=== PATIENT | male | born 1985 | race Caucasian/White ===

== ENCOUNTER 2024-11-28 10:28 | Outpatient (AMB) | payer OTHER, SELFPAY ==
--- NOTE | 2024-11-28 10:34 | A.OFFPC_ITS ---
Vital Signs 11/28/24 10:41 Height 6 ft 5 in Weight 200 lb BMI 23.7 BP 110/72 Blood Pressure Location Lt brachial Position Sitting Respiration 14 Pulse 74 Pulse Source Pulse Oximeter Pulse Oximetry (%) 99 Oxygen Delivery Method Room Air Intake Visit Reasons: Est care /requesting referral for surgery Intake Note: New patient visit Back Tender Required: No Allergies No Known Allergies Allergy (Verified 11/28/24 10:35) Medication List - Last Reconciled 11/28/24 by Minna Cortes PA-C No Known Home Meds Tobacco use date assessed: 11/28/24 Dental Screening Dental Screen Date: 11/28/24 HPI Est care /requesting referral for surgery HPI Details History of Present Illness The patient is a 39-year-old male presenting to [facility] and with a request for referrals for his ongoing management of Stage 2A melanoma. The patient reports that he was diagnosed with melanoma on October 03, which was classified as Stage 2A following his initial visit at a dermatology clinic ([facility]) on September 12. The lesion was initially measured at 4 mm x 6 mm on his face by the data warehousing engineer at [facility]. The patient recalls having an insurance-provided referral from his previous primary care provider at [facility]. He states that his pcp left onsted and he has since been without a pcp. The patient indicates that he has a scheduled surgical procedure at [facility] on December 11 for the excision of the melanoma. He has seen Dr. Souleymane Colon, the head surgeon at [facility], and has been in correspondence with a plastic surgeon, Dr. Fabrizio Prince, who is expected to be part of the surgical team. The patient has had a PET scan and MRI three weeks ago, which showed that the melanoma had not metastasized. He also reports having undergone a full-body examination previously at [facility] and intends to continue receiving care there alongside [facility]. Moreover, the patient mentions a plan to implement routine screenings including basic labs for liver and kidney function, cholesterol, blood glucose levels, and other routine tests, although these have not yet been undertaken. The patient denies any symptoms suggestive of systemic effects of melanoma, including fatigue or changes in appetite, and remains active in his occupation in [employer], as well as in personal fitness activities. Health Maintenance - Scheduled surgery for melanoma excisio n at [facility] on December 11 - Reported receiving and following a pre ventative full-body skin examination on September 12 - Plans to continue with routine blood w ork monitoring liver and kidney function, blood glucose, cholesterol, and thyroid function - Continuing regular cardiovascular and strength exercises - Consumes a primarily plant-based diet during a 21-day [place] fast, consuming fruits, vegetables, and lentils - Protective measures involving sun prot ection with full-brimmed hats and sunscreen Social History - Employment: certified pest control technician, 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 Appears stated age. Cardiac: RRR, no murmurs Lungs: clear, equal breath sounds Abdomen: soft, nontender, no CVA tenderness Extremities: no edema Neuro: alert, oriented x3, mood appropriate Plan - I will provide referrals for ongoing d ermatologic and oncological care, including [facility] and [facility], as well as a plastic surgery consult with Dr. Fabrizio Prince - Schedule and complete repeat blood wor k including basic labs for comprehensive metabolic profile CMP), blood glucose, cholesterol panel, and thyroid function given the plan for surgery - I recommend continued adherence to the scheduled surgical procedure for melanoma excision set for December 11 - Continue protective measures for skin care, specifically UV protection - Follow-up on the insurance coverage fo r referrals to ensure all necessary consultations and procedures are covered - Encourage continued physical activity and a balanced diet with the transition back to a varied diet post-fast - Monitor for any changes in symptoms or new skin lesions and maintain a regular follow-up as scheduled for post-operative evaluation - Discuss concerns regarding return to w ork and necessary recovery period following surgery PFSH Family History (Updated 11/28/24 @ 10:41 by Nia Bear [facility]) Maternal Aunt Diabetes Maternal Aunt Colon cancer Maternal Grandfather Alzheimer dementia Other Substance abuse Social History (Updated 11/28/24 @ 10:39 by Nia Bear [facility]) Housing: House 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 1. Little interest or pleasure in doing things: not at all 2. Feeling down, depressed, or hopeless: not at all 3. Trouble falling or staying asleep, or sleeping too much: not at all 4. Feeling tired or having little energy: not at all 5. Poor appetite or overeating: not at all 6. Feeling bad about yourself - or that you are a failure or have let yourself or your family down: not at all 7. Trouble concentrating on things, such as reading the newspaper or watching television: not at all 8. Moving or speaking so slowly that other people could have noticed. Or the opposite - being so fidgety or restless that you have been moving around a lot more than usual: not at all 9. Thoughts that you would be better off or of hurting yourself in some way: not at all Total score: 0 Depression Screening Interpretation: Negative Depression Screening Done: Yes 59070 - PHQ-9 Billing: Yes Source: Developed by Drs. Froy Mota, Isis Fuentes, Juarez Casillas and colleagues, with an educational ladonna from [employer]. Thrive Questionnaire I am a: Patient What is your living situation today?: I have a steady place to live Within the past 12 months, did the food you bought not last and you didn't have the money to get more?: I choose not to answer this question Within the past 12 months, did you worry whether your food would run out before you got money to buy more?: I choose not to answer this question Do you have trouble paying for medicines?: No Do you have trouble getting transportation to medical appointments?: No Do you have trouble paying your heating and electricity bill?: I choose not to answer this question Do you have trouble taking care of your child, family member or friend?: I choose not to answer this question Do you have trouble with day-to-day activities such as bathing, preparing meals, shopping, managing finances, etc.?: No Are you currently unemployed and looking for a job?: No Are you interested in more education?: No Please select the resources that you would like help with: None Currently or been in a relationship where the following occur: I choose not to answer THRIVE Score: 0 AUDIT C Alcohol Use Questionnaire (AUDIT-C) 1. How often do you have a drink containing alcohol?: Never Total Score: 0 AMANDA-7 AMB Questionnaire AMANDA-7 Feeling nervous, anxious, or on edge: 0 = Not at all Not being able to stop or control worryin = Not at all Worrying too much about different things: 0 = Not at all Trouble relaxin = Not at all Being so restless that it is hard to sit still: 0 = Not at all Becoming easily annoyed or irritable: 0 = Not at all Feeling afraid as if something awful might happen: 0 = Not at all Total AMANDA-7 score (0-4 normal; 5-9 mild; 10-14 moderate; 15-21 severe): 0 Source: Developed by Drs. Froy Mota, Isis Fuentes, Juarez Casillas and colleagues, with an educational ladonna from [employer]. AMANDA-7 Assessment Billing AMANDA-7 Assessment Tool: AMANDA-7 Assessment 91428 Physical exam (Primary Care) Vital Signs: Last Vital Signs Pulse 74 11/28/24 10:41 Resp 14 11/28/24 10:41 BP 110/72 11/28/24 10:41 Pulse Ox 99 11/28/24 10:41 Oxygen Delivery Method Room Air 11/28/24 10:41 BMI result Body Mass Index 23.7 Tobacco/Smoking Status: Tobacco use Status Tobacco use date assessed 11/28/24 11/28/24 10:43 Patient Tobacco Use Status Never used Tobacco 11/28/24 10:43 e-Cigarette/Vaping Use Never Used 11/28/24 10:43 PHQ-9: PHQ-9 Score PHQ-9: Total score 0 11/28/24 11:03 Depression Screening Interpretation: Negative Currently or been in a relationship where the following occur: I choose not to answer Coding Level of Care Code New Pt Level 3 (13108) Complex EM visit Add On G2211 Diagnoses Malignant melanoma, stage IIA C43.9 Additional Codes AMANDA-7 Assessment Billing - AMANDA-7 Assessment Tool: AMANDA-7 Assessment 61333 ([id number]) PHQ-9 - 63036 - PHQ-9 Billing: Yes ([id number]) Assessment & Plan Assessment & Plan (1) Malignant melanoma, stage IIA: Code(s): C43.9 - Malignant melanoma of skin, unspecified Category: Medical Plan: . Orders: Orders Complete Blood Count Auto Diff Today C43.9 - Malignant melanoma of skin, unspecified, Z01.89 - Encounter for other specified special examinations Comprehensive [place]. Panel Fast Today C43.9 - Malignant melanoma of skin, unspecified, Z01.89 - Encounter for other specified special examinations Lipid Panel Today C43.9 - Malignant melanoma of skin, unspecified, Z01.89 - Encounter for other specified special examinations TSH reflex Free T4 Today C43.9 - Malignant melanoma of skin, unspecified, Z01.89 - Encounter for other specified special examinations Referrals Dermatology Referral C43.9 - Malignant melanoma of skin, unspecified Hematology & Oncology Referral C43.9 - Malignant melanoma of skin, unspecified Dermatology Referral C43.9 - Malignant melanoma of skin, unspecified Plastic Surgery Referral C43.9 - Malignant melanoma of skin, unspecified
[2024-11-28 10:41] VITALS: BP 110/72; PULSE 74; RESP 14; O2SAT 99; BMI 23.7
--- OUTSIDE RECORDS SUMMARY | 2024-11-28 12:51 | XMS_ITS | Continuity of Care Document ---
Author Organization [facility] Address [address] [place] [address]- Care Team Providers Care Manufacturers Agent Name Role Phone Not on Staff, PCP Primary Care Physician Unavail able Encounter [facility] Date(s): 10/12/24 - 11/11/24 [facility] [address] [place] [address] Attending Physician: Holly Foster Admitting Physician: Holly Foster Referring Physician: Holly Foster Encounter Type: Triage Patient Care team information Care Team Personnel Name: Not on Staff, PCP Position: S Physician (General Medicine) Member Role: PCP Insurance Providers Guarantor name: NA Health Plan Information #: 1 Payer: [facility] POS Member Number: NA Policy Number: NA Group Number: NA
--- OUTSIDE RECORDS SUMMARY | 2024-11-28 12:51 | XMS_ITS | Clinical Summary ---
Author Organization [facility] [address] [facility] Address [address] [place] [address] Phone Care Team Providers Care Multiple Tube Winding Machine Operator Name Role Phone Unavailable Primary Care Provider Unavailabl e Encounters Date Type Department Care Team Description 10/12/2024 Telephone Adult Medicine [facility] [address] [place] [address] Lydia Simon MD Referral from Last 3 Months Surgical History Surgery Date Site/Laterality Comments MOUTH SURGERY PROCEDURE: ORAL SURGERY PROCEDURE; COMMENT: teeth - age 3 Medical History Medical History Date Comments Obstructive sleep apnea 11/15/2019 DX:Obstr uctive sleep apnea; COMMENT: SMS Home Sleep Apnea Test: Date 11/06/2019; Wt 235#; BMI 28; TINO 7, AI 3; HI 5; Unclassified apneas 0; Obstructive apneas 10; Central apneas 0; Mixed apneas 0; hypopneas 18; average oxygen saturation 92% (lowest 84% with saturations <88% for 5% or more of study) - Obstructive Sleep Apnea - mild; mostly hypopneas and obstructive apneas; with sleep related hypoven* Family History Medical History Relation Name Comments Hypertension Father Alzheimer's disease Maternal Grandfather Liver cancer Maternal Grandmother Other: skin cancer Maternal Grandmother Stroke Paternal Grandfather Hypertension Paternal Grandmother Relation Name Status Comments Brother Alive healthy Father Alive htn Maternal Grandfather (Age 80) al zheimers Maternal Grandmother (Age 70s) c ancer in abdomen Mother Alive healthy Paternal Grandfather Alive healthy Paternal Grandmother Alive htn Social History Tobacco Use Types Packs/Day Years Used Date Smoking Tobacco: Former Cigarettes Q uit: 01/26/2006 Smokeless Tobacco: Never Alcohol Use Standard Drinks/Week Comments Yes 2 (1 standard drink = 0.6 oz pur e alcohol) Sex and Gender Information Value Date Recorded Sex Assigned at Not on file Legal Sex Male 6:43 AM EST Gender Identity Not on file Sexual Orientation Not on file Obstetrics History Last Filed Vital Signs Vital Sign Reading Time Taken Comments Blood Pressure 102/44 03/23/2024 3:41 PM EDT Pulse 65 03/23/2024 3:41 PM EDT Temperature - - Respiratory Rate - - Oxygen Saturation - - Inhaled Oxygen Concentration - - Weight 95.7 kg (211 lb) 03/23/2024 3:41 PM EDT Height 198.1 cm (6' 6 ) 03/23/2024 3:41 PM EDT Body Mass Index 24.38 03/23/2024 3:41 PM EDT Plan of Treatment Health Maintenance Due Date Last Done Comments Hepatitis B Vaccines (1 of 3 - 19+ 3-dose series) 02/16/2003 Cholesterol Screening (Lipid Panel) 11/02/2023 Depression Screening 11/02/2023 HIV Screening 11/02/2023 Hepatitis C Screening 11/02/2023 Social Influencers of Health Screening 11/02/2023 COVID-19 Vaccine (3 - 2023-2 5 season) 2024 04/04/2021, 03/14/2021 Influenza Vaccine (#1) 2024 DTaP,Tdap,and Td Vaccines (2 - Td or Tdap) 01/26/2026 01/27/2016 HIB Vaccines Aged Out No longer eligi ble based on patient's age to complete this topic HPV Vaccines Aged Out No longer eligi ble based on patient's age to complete this topic Hepatitis A Vaccines Aged Out No long er eligible based on patient's age to complete this topic IPV Vaccines Aged Out No longer eligi ble based on patient's age to complete this topic MMR Vaccines Aged Out No longer eligi ble based on patient's age to complete this topic Meningococcal ACWY Vaccine Aged Out N o longer eligible based on patient's age to complete this topic Meningococcal B Vacine Aged Out No lo nger eligible based on patient's age to complete this topic Pneumococcal Vaccine: Pediatrics (0 to 5 Years) and At-Risk Patients (6 to 64 Years) Aged Out No longer eligible b ased on patient's age to complete this topic RSV Immunization Patients Under 20 months Aged Out No longer eligible b ased on patient's age to complete this topic Varicella Vaccines Aged Out No longer eligible based on patient's age to complete this topic
--- OUTSIDE RECORDS SUMMARY | 2024-11-28 12:51 | XMS_ITS | Encounter Summary ---
Author Organization [facility] Address [address] [place] [address] Care Team Providers Care Radio Machinist Name Role Phone Lydia Simon MD Primary Care Provider [phone] Reason for Visit * Reason Onset Date Comments Referral 10/12/2024 Encounter Details Date Type Department Care Team (Late st Contact Info) Description 10/12/2024 Telephone Adult [facility] [address] [place] [phone] Lydia Simon MD [address] [place] [address] Referral Social History Tobacco Use Types Packs/Day Years [...] on file Sexual Orientation Not on file documented as of this encounter Progress Notes * Jewels Allison MA - 10/17/2024 4:31 PM EST Message left for patient to call office back. He has not had a visit with any other provider's herebesides pcp who no longer works here. Patient needs new pcp, can not process his request. * Zac Goldstein - 10/12/2024 10:16 AM EST Referral Request: What insurance does the patient have today? [facility] Referrals cannot be processed if the insurance is not accurate. If the insurance listed above in red is NO BILLING INFORMATION FOUND FOR THIS ENCOUTNER The patients correct insurance must be obtained and registered in [facility] or their referral can not be processed. Is this a retro request? no. If yes for what date of service do you need the retro referral? not applicable Who is calling to request this referral? pt If the caller is not the patient, what is their name? not applicable Ask the patient WHO referred them to this specialty: Patient was seen by external specialist Joshua Burnett on 09/12/2024 who has now referred them to this specialty FIRST and LAST NAME of SPECIALIST PATIENT is seeing: Orlin Crandall MD - NPI #[id number] What specialty is this? Derm DIAGNOSIS Patient is being seen for (Not a body part or a procedure): skin cancer Have you seen this SPECIALIST for this PROBLEM/DX before? If YES, when? No Have you checked REVIEW or the APPT DESK to see if this referral has already been done or has visits left? yes Is this visit: Initial Visit Address of Specialist: [address] [place] [address] [address], [place] [id number] Phone # of Specialist: Fax #: (if applicable): [phone] Does patient have an appointment scheduled?: yes Date of appointment- (including a retro-request): 10/17/2024 Is this appointment related to: Not MVA, worker compensation, or surgery related documented in this encounter Plan of Treatment Not on file documented as of this encounter Visit Diagnoses Not on filedocumented in this encounter Care Teams Radio Machinist Relationship Specialty Start Date End Date Lydia Simon MD [address] [place] [address] PCP - General 05/10/23 11/04/24 documented as of this encounter
== END 2024-11-28 11:08 | disposition home or self-care (01) ==
PROVIDERS: PCP Physician Assistant; Visit Provider Physician Assistant
DX: C43.9 Malignant melanoma of skin, unspecified (principal)

== ENCOUNTER → 2024-11-28 10:28 | Outpatient (BNVA) | payer OTHER, SELFPAY | PROVIDERS: PCP Physician Assistant; Visit Provider Physician Assistant | DX: C43.30 Malignant melanoma of unspecified part of face (principal) | CPT/HCPCS: 96127 ==

== ENCOUNTER 2025-03-15 08:07 | Outpatient (REF) | payer OTHER, SELFPAY ==
--- OUTSIDE RECORDS SUMMARY | 2025-03-15 08:10 | XMS_ITS | Clinical Summary ---
Author Organization [facility] [address] [facility] Address [address] [place] [address] Phone Care Team Providers Care Automatic Machines Supervisor Name Role Phone Unavailable Primary Care Provider Unavailabl e Surgical History Surgery Date Site/Laterality Comments MOUTH [...] Influencers of Health Screening 11/02/2023 COVID-19 Vaccine ( - 2023-2 5 season) 2024 04/04/2021, 03/14/2021 Influenza Vaccine (Season Ended) 2025 DTaP,Tdap,and Td Vaccines (2 - Td or [...] age to complete this topic Meningococcal B Vaccine Aged Out No l onger eligible based on patient's age to complete [...]
[2025-03-15 10:56] LABS: MANUAL DIFF FLAG NO
[2025-03-15 11:05] LABS: Basophils Absolute Auto 0.1 X10*3/uL (0.0-0.2); Basophils Percent Auto 0.8 % (0-2); Eosinophils Absolute Auto 0.2 X10*3/uL (0.0-0.4); Eosinophils Percent Auto 2.8 % (0-4); Hematocrit 47.6 % (42.0-52.0); Hemoglobin 16.3 g/dl (14.0-18.0); Imm Gran Abs Auto 0.04 X10*3/uL (0.00-0.03); Imm Gran Pct Auto 0.7 % (0.0-0.4); Lymphocytes Absolute Auto 1.5 X10*3/uL (1.2-4.9); Lymphocytes Percent Auto 25.4 % (20-40); Mean Corpuscular HGB Conc 34.2 g/dl (31.0-36.0); Mean Corpuscular Hemoglobin 31.6 pg (27.0-33.0); Mean Corpuscular Volume 92.2 fL (80.0-98.0); Mean Platelet Volume 10.6 fL (9.4-12.4); Monocytes Absolute Auto 0.5 X10*3/uL (0.1-1.2); Neutrophils Absolute Auto 3.7 x10*3/uL (2.0-8.3); Neutrophils Percent Auto 61.3 % (45-73); Platelet Count 194 X10*3/uL (160-400); Red Blood Count 5.16 X10*6/uL (4.60-5.80); Red Cell Distribution Width 12.7 % (11.0-16.0)
[2025-03-15 11:22] LABS: Alanine Aminotransferase 30 U/L (0-40); Albumin Level 4.8 g/dL (3.5-5.0); Alkaline Phosphatase 42 U/L (39-117); Anion Gap 9 (12-20); Aspartate Amino Transferase 26 U/L (5-37); Bilirubin Total 0.3 mg/dL (0.0-1.0); Blood Urea Nitrogen 10 mg/dL (9-16); Calcium 9.5 mg/dL (8.4-10.2); Carbon Dioxide 26 mmol/L (22-29); Chloride 111 mmol/L (96-108); Cholesterol 175 mg/dL (<200); Estimated Glomerular Filt Rate > 60; Glucose Fasting 112 mg/dL (60-99); HDL Cholesterol 43 mg/dL (>40); LDL Cholesterol Calculated 118 mg/dL (<100); Potassium 4.3 mmol/L (3.3-5.1); Sodium 142 mmol/L (135-145); Total Protein 6.7 g/dL (6.5-8.0); Triglycerides 73 mg/dL (<150)
[2025-03-15 11:28] LABS: Syphilis Screen Nonreactive (Nonreactive)
[2025-03-15 11:29] LABS: HIV AB/AG Nonreactive (Nonreactive); HIV Num 1 0.07 S/CO (0.00-0.99); ~HepC Num1 0.11 S/CO (0.00-0.79); ~Hepatitis C Antibody Nonreactive (Nonreactive)
[2025-03-15 11:32] LABS: TSH reflex Free T4 1.18 uIU/mL (0.32-4.0)
[2025-03-15 13:13] LABS: CT PCR NOT DETECTED (Not Detect.); NG PCR NOT DETECTED (Not Detect.)
== END 2025-03-15 08:08 | disposition home or self-care (01) ==
LOC: HO.WFDLDS 08:07
PROVIDERS: Visit Provider Physician Assistant
DX: Z20.2 Contact with and (suspected) exposure to infections with a predominantly sexual mode of transmission (principal); C43.9 Malignant melanoma of skin, unspecified; Z01.89 Encounter for other specified special examinations; Z13.6 Encounter for screening for cardiovascular disorders
CPT/HCPCS: 80053; 80061; 84443; 85025; 86780; 86803; 87389; 87491; 87591